=== PATIENT | male | born 1995 | race Caucasian/White ===

== ENCOUNTER 2018-03-20 01:47 | Emergency (ER) | payer OTHER ==
[2018-03-20] MEDS ORDERED: NS 1,000 ML IV ONE (01:52)
[2018-03-20] MEDS ORDERED: ONDANSETRON 4 MG/2 ML VIAL IVP ONE (01:52)
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
[2018-03-20 02:07] LABS: PLATELET COUNT 298 10^3/uL (150-400)
[2018-03-20 06:48] VITALS: BP 134/63
== END 2018-03-20 06:47 | disposition home or self-care (01) ==
PROC: 0HQ1XZZ Repair Face Skin, External Approach (ICD-10-PCS; principal; 2018-03-20)
DX: S01.81XA Laceration without foreign body of other part of head, initial encounter (principal); S60.222A Contusion of left hand, initial encounter; F10.129 Alcohol abuse with intoxication, unspecified; V18.0XXA Pedal cycle driver injured in noncollision transport accident in nontraffic accident, initial encounter; Y93.55 Activity, bike riding; Y90.6 Blood alcohol level of 120-199 mg/100 ml
CPT/HCPCS: 96374; A4565; G0480; J2405

== ENCOUNTER 2018-03-20 19:42 | Emergency (ER) | payer OTHER ==
[2018-03-20] MEDS ORDERED: NS 1,000 ML IV ONE ×2 (19:49→21:24)
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
[2018-03-20 20:31] LABS: PLATELET COUNT 206 10^3/uL (150-400)
--- NOTE | 2018-03-20 20:34 | CPEKG ---
Test Reason : OPEN Blood Pressure : / mmHG Vent. Rate : 070 BPM Atrial Rate : 070 BPM P-R Int : 171 ms QRS Dur : 101 ms QT Int : 388 ms P-R-T Axes : 039 014 025 degrees QTc Int : 419 ms Sinus rhythm Confirmed by Efrain Manriquez ([id number]) on 03/20/2018 8:34:10 PM Referred By: Confirmed By:Efrain Manriquez
[2018-03-20 23:38] VITALS: BP 128/76
[2018-03-20] MEDS ORDERED: KETOROLAC 30 MG/1 ML SDV IVP ONE (23:38)
== END 2018-03-20 23:55 | disposition home or self-care (01) ==
LOC: EDUNIT#
DX: E86.9 Volume depletion, unspecified (principal)
CPT/HCPCS: 96374; J1885

== ENCOUNTER 2018-12-05 21:37 | Emergency (ER) | payer OTHER | END 2018-12-05 23:19 | disposition home or self-care (01) | DX: [UNRECOGNIZED DIAGNOSIS CODE] ==